=== PATIENT | female | born 1980 | race Caucasian/White ===

== ENCOUNTER 2020-03-13 07:15 | Outpatient (REF) | payer OTHER, SELFPAY ==
[2020-03-13 09:36] LABS: Alanine Aminotransferase 20 U/L (0-31); Albumin Level 4.1 g/dL (3.5-5.0); Alkaline Phosphatase 88 U/L (39-117); Anion Gap 10 (12-20); Aspartate Amino Transferase 23 U/L (5-31); Bilirubin Total 0.4 mg/dL (0.0-1.0); Blood Urea Nitrogen 10 mg/dL (9-16); Calcium 8.9 mg/dL (8.4-10.2); Carbon Dioxide 27 mmol/L (22-29); Chloride 103 mmol/L (96-108); Cholesterol 213 mg/dL; Estimated Glomerular Filt Rate > 60; Glucose Fasting 77 mg/dL (60-99); HDL Cholesterol 68 mg/dL; LDL Cholesterol Calculated 121 mg/dl; Potassium 4.4 mmol/l (3.3-5.1); Sodium 136 mmol/L (135-145); Total Protein 7.1 g/dL (6.5-8.0); Triglycerides 123 mg/dL
[2020-03-13 09:47] LABS: TSH reflex Free T4 1.66 mIU/mL (0.32-4.0)
== END 2020-03-13 07:16 | disposition home or self-care (01) ==
LOC: HO.LAB 07:15
PROVIDERS: Visit Provider Internal Medicine
DX: E78.00 Pure hypercholesterolemia, unspecified (principal); E06.3 Autoimmune thyroiditis
CPT/HCPCS: 80053; 80061; 84443

== ENCOUNTER 2020-07-12 07:50 | Outpatient (REF) | payer OTHER, SELFPAY ==
[2020-07-12 09:19] LABS: TSH reflex Free T4 2.65 uIU/mL (0.32-4.0)
== END 2020-07-12 07:51 | disposition home or self-care (01) ==
LOC: HO.LAB 07:50
PROVIDERS: PCP Internal Medicine; Visit Provider Internal Medicine
DX: E03.9 Hypothyroidism, unspecified (principal)
CPT/HCPCS: 36415; 84443

== ENCOUNTER 2020-08-18 08:30 | Outpatient (REF) | payer OTHER, SELFPAY | END 2020-08-18 08:31 | disposition home or self-care (01) | LOC: HO.WFDLDS 08:30 | PROVIDERS: Visit Provider Internal Medicine | DX: Z20.822 Contact with and (suspected) exposure to COVID-19 (principal) | CPT/HCPCS: U0003; U0005 ==

== ENCOUNTER 2021-02-07 16:20 | Outpatient (REF) | payer OTHER, SELFPAY ==
[2021-02-07 18:31] LABS: TSH reflex Free T4 3.21 uIU/mL (0.32-4.0)
== END 2021-02-07 16:21 | disposition home or self-care (01) ==
LOC: HO.LAB 16:20
PROVIDERS: PCP Internal Medicine; Visit Provider Internal Medicine
DX: E03.9 Hypothyroidism, unspecified (principal)
CPT/HCPCS: 36415; 84443

== ENCOUNTER 2021-11-14 08:30 | Outpatient (REF) | payer OTHER, SELFPAY ==
[2021-11-14 09:08] LABS: Hematocrit 39.2 % (37.0-47.0); Hemoglobin 12.2 g/dl (12.0-16.0); Mean Corpuscular HGB Conc 31.1 g/dl (31.0-35.0); Mean Corpuscular Hemoglobin 26.2 pg (27.0-33.0); Mean Corpuscular Volume 84.3 fL (80.0-98.0); Mean Platelet Volume 9.5 fL (9.4-12.3); Platelet Count 419 X10*3/uL (160-400); Red Blood Count 4.65 X10*6/uL (4.20-5.50); Red Cell Distribution Width 15.4 % (11.0-16.0); White Blood Count 8.6 X10*3/uL (4.8-10.8)
[2021-11-14 09:30] LABS: Alanine Aminotransferase 13 U/L (0-31); Albumin Level 4.3 g/dL (3.5-5.0); Alkaline Phosphatase 101 U/L (39-117); Anion Gap 10 (12-20); Aspartate Amino Transferase 18 U/L (5-31); Bilirubin Total 0.3 mg/dL (0.0-1.0); Blood Urea Nitrogen 10 mg/dL (9-16); Calcium 9.6 mg/dL (8.4-10.2); Carbon Dioxide 26 mmol/L (22-29); Chloride 107 mmol/L (96-108); Cholesterol 221 mg/dL; Estimated Glomerular Filt Rate > 60; Glucose Fasting 91 mg/dL (60-99); HDL Cholesterol 64 mg/dL; LDL Cholesterol Calculated 144 mg/dl; Potassium 5.2 mmol/L (3.3-5.1); Sodium 138 mmol/L (135-145); Total Protein 7.4 g/dL (6.5-8.0); Triglycerides 65 mg/dL
[2021-11-14 09:52] LABS: TSH reflex Free T4 4.06 uIU/mL (0.32-4.0)
[2021-11-14 10:46] LABS: Free T4 (Free Thyroxine) 1.22 ng/dL (0.71-1.85)
== END 2021-11-14 08:31 | disposition home or self-care (01) ==
LOC: HO.LAB 08:30
PROVIDERS: PCP Internal Medicine; Visit Provider Physician Assistant
DX: E03.9 Hypothyroidism, unspecified (principal); I10 Essential (primary) hypertension; E78.00 Pure hypercholesterolemia, unspecified
CPT/HCPCS: 36415; 80053; 80061; 84439; 84443; 85027

== ENCOUNTER 2021-12-04 08:30 | Outpatient (REF) | payer OTHER, SELFPAY ==
--- NOTE | ~2021-12-04 | MM_ITS ---
EXAMINATION: MM SCREENING DIGITAL BREAST TOMOSYNTHESIS, BILATERAL CLINICAL INFORMATION: Screening. Asymptomatic. Age 41. No prior breast imaging. No known family history breast cancer. The lifetime risk of breast cancer based on the Tyrer-Cuzick Model is 11%. COMPARISON: None (current study represents initial baseline exam). TECHNIQUE: Digital breast tomosynthesis is performed in both the craniocaudal and mediolateral oblique views along with computer-aided detection (CAD). Synthesized 2D images are generated from the tomosynthesis. FINDINGS: There are scattered areas of fibroglandular density (ACR BI-RADS breast composition Category b). There are no significant masses, abnormal calcifications, or other abnormalities. No architectural abnormality. There is an intramammary node posterior upper outer right breast. The bilateral axilla and skin contours are unremarkable MM/MM tomosynthesis screening BI IMPRESSION: No mammographic evidence of malignancy. ASSESSMENT: BI-RADS 2: Benign RECOMMENDATION: Routine annual mammography screening. This patient's information was entered into a reminder system with a target due date for their next mammogram.
== END 2021-12-04 08:31 | disposition home or self-care (01) ==
LOC: HO.MAMMO 08:30
PROVIDERS: PCP Internal Medicine; Visit Provider Internal Medicine
DX: Z12.31 Encounter for screening mammogram for malignant neoplasm of breast (principal)
CPT/HCPCS: 77063; 77067

== ENCOUNTER 2022-02-07 16:37 | Outpatient (REF) | payer OTHER, SELFPAY ==
[2022-02-07 17:47] LABS: Alanine Aminotransferase 11 U/L (0-31); Albumin Level 4.3 g/dL (3.5-5.0); Alkaline Phosphatase 89 U/L (39-117); Anion Gap 13 (12-20); Aspartate Amino Transferase 17 U/L (5-31); Bilirubin Total 0.6 mg/dL (0.0-1.0); Blood Urea Nitrogen 11 mg/dL (9-16); Calcium 9.3 mg/dL (8.4-10.2); Carbon Dioxide 24 mmol/L (22-29); Chloride 105 mmol/L (96-108); Estimated Glomerular Filt Rate > 60; Glucose Random 80 mg/dL (60-115); Potassium 4.3 mmol/L (3.3-5.1); Sodium 138 mmol/L (135-145); Total Protein 7.3 g/dL (6.5-8.0)
== END 2022-02-07 16:38 | disposition home or self-care (01) ==
LOC: HO.LAB 16:37
PROVIDERS: PCP Internal Medicine; Visit Provider Internal Medicine
DX: E87.5 Hyperkalemia (principal)
CPT/HCPCS: 36415; 80053

== ENCOUNTER → 2022-02-13 07:48 | Outpatient (REF) | payer OTHER, SELFPAY ==
--- NOTE | 2022-02-13 07:54 | ECG_ITS ---
Test Reason : hyperkalemia Blood Pressure : / mmHG Vent. Rate : 063 BPM Atrial Rate : 063 BPM P-R Int : 148 ms QRS Dur : 080 ms QT Int : 392 ms P-R-T Axes : 013 077 042 degrees QTc Int : 401 ms Normal sinus rhythm RSR' or QR pattern in V1 suggests right ventricular conduction delay Otherwise normal ECG No previous ECGs available Referred By: Jaqueline Santiago Electronically Signed By:FANY STILES MD
== END ==
LOC: HO.CARD 07:48
PROVIDERS: PCP Internal Medicine; Visit Provider Internal Medicine
DX: E87.5 Hyperkalemia (principal)
CPT/HCPCS: 93005

== ENCOUNTER 2022-03-19 09:23 | Outpatient (REF) | payer OTHER, SELFPAY ==
[2022-03-22 23:47] LABS: HPV mRNA E6/E7 rflx Not Detected (Not Detected)
== END 2022-03-19 09:24 | disposition home or self-care (01) ==
LOC: HO.LNP 09:23
PROVIDERS: Visit Provider Obstetrics & Gynecology
DX: Z01.419 Encounter for gynecological examination (general) (routine) without abnormal findings (principal)
CPT/HCPCS: 87624; 88142

== ENCOUNTER → 2022-05-14 14:31 | Outpatient (BNVA) | payer OTHER, SELFPAY | PROVIDERS: PCP Internal Medicine; Referring Provider Internal Medicine; Visit Provider Internal Medicine | DX: Z13.89 Encounter for screening for other disorder (principal) ==

== ENCOUNTER 2022-05-15 08:30 | Outpatient (REF) | payer OTHER, SELFPAY ==
[2022-05-15 09:51] LABS: Thyroid Stimulating Hormone 2.02 uIU/mL (0.32-4.0)
== END 2022-05-15 08:31 | disposition home or self-care (01) ==
LOC: HO.LAB 08:30
PROVIDERS: PCP Internal Medicine; Visit Provider Internal Medicine
DX: E03.9 Hypothyroidism, unspecified (principal)
CPT/HCPCS: 36415; 84443

== ENCOUNTER 2022-12-11 08:30 | Outpatient (AMB) | payer OTHER, SELFPAY ==
[2022-12-11 08:40] VITALS: BP 104/70; PULSE 80; BMI 28.7
--- NOTE | 2022-12-11 08:40 | MHC.PC.OV ---
Vital Signs 12/11/22 08:40 Height 5 ft 3 in Weight 162 lb BMI 28.7 BP 104/70 Blood Pressure Location Lt brachial Position Sitting Pulse 80 Pulse Source Palpation Intake Visit Reasons: PE Intake Note: Patient is here today for a physical. Fish Cleaner Required: No Accompanied by: Self / Same As Patient Allergies No Known Allergies [NKA] Allergy (Mild, Verified 12/11/22 08:54) NOT APPLICABLE Medication List - Last Reconciled 12/11/22 by Jaqueline Santiago MD albuterol sulfate 90 mcg/actuation 1 inh inhalation QID 30 days albuterol sulfate 90 mcg/actuation (Ventolin HFA) 2 puffs inhalation Q6H PRN 30 days fexofenadine (Matrha Allergy) 180 mg PO DAILY fluticasone propionate 44 mcg/actuation (Flovent HFA) 1 puff PO BID levothyroxine 100 mcg PO DAILY 90 days Tobacco use date assessed: 05/15/22 Dental Screening Dental Screen Date: 12/11/22 Did you have a dental visit in the last 12 months?: No Did you have a dental problem in the last 6 months where you did not have access to dental care?: No Was dental information given to patient?: Patient has dentist HPI HPI Comments History of Present Illness Details This is a 40-year-old female that comes for her physical exam. Last mammogram was December 2021 and will call for another appointment this year. Last Pap smear was March 2022 with HPV negative. No chest pain or shortness of breath. No fever cough. No change in bowel or bladder habits. [facility] Medical History Hypothyroidism Moderate asthma with allergic rhinitis Pure hypercholesterolemia Surgical History History of section History of nasal surgery Family History Father Medical history unknown Mother Hypothyroid Multiple sclerosis Maternal Grandmother Myocardial infarction Hypertension Maternal Aunt Diabetes Maternal Uncle Diabetes Social History Housing: House Alcohol intake: never Patient Tobacco Use Status: Never used Tobacco e-Cigarette/Vaping Use: Never Used Second Hand Smoke Exposure: No service: No Current occupational status: employed Current occupational exposures/hazards: No Cognitive needs: No Hearing needs: No Vision needs: No Female Reproductive History Menstrual Age of Menarche: 11 Questionnaire PHQ-9 Over the last 2 weeks, how often have you been bothered by any of the following problems? 1. Little interest or pleasure in doing things: not at all 2. Feeling down, depressed, or hopeless: not at all 3. Trouble falling or staying asleep, or sleeping too much: not at all 4. Feeling tired or having little energy: not at all 5. Poor appetite or overeating: not at all 6. Feeling bad about yourself - or that you are a failure or have let yourself or your family down: not at all 7. Trouble concentrating on things, such as reading the newspaper or watching television: not at all 8. Moving or speaking so slowly that other people could have noticed. Or the opposite - being so fidgety or restless that you have been moving around a lot more than usual: not at all 9. Thoughts that you would be better off or of hurting yourself in some way: not at all Total score: 0 Depression Screening Interpretation: Negative 96469 - PHQ-9 Billing: Yes Source: Developed by Drs. Babar Wilks, Jovanna Prajapati, Rafa Chu and colleagues, with an educational kwadwo from [employer]. Thrive Questionnaire Date Thrive assessed: 05/15/22 I am a: Patient What is your living situation today?: I have a steady place to live Within the past 12 months, did the food you bought not last and you didn't have the money to get more?: Never true Within the past 12 months, did you worry whether your food would run out before you got money to buy more?: Never true Currently or been in a relationship where the following occur: no concerns reported AUDIT C Alcohol Use Questionnaire (AUDIT-C) 1. How often do you have a drink containing alcohol?: Never Total Score: 0 Score Reviewed/Action Taken: No KE-7 AMB Questionnaire KE-7 Date KE - 7 assessed: 05/15/22 Feeling nervous, anxious, or on edge: 0 = Not at all Not being able to stop or control worryin = Not at all Worrying too much about different things: 0 = Not at all Trouble relaxin = Not at all Being so restless that it is hard to sit still: 0 = Not at all Becoming easily annoyed or irritable: 0 = Not at all Feeling afraid as if something awful might happen: 0 = Not at all Total KE-7 score (0-4 normal; 5-9 mild; 10-14 moderate; 15-21 severe): 0 Source: Developed by Drs. Babar Wilks, Jovanna Prajapati, Rafa Chu and colleagues, with an educational kwadwo from [employer]. KE-7 Assessment Billing KE-7 Assessment Tool: KE-7 Assessment 79671 Review of Systems Const All systems reviewed & are unremarkable except as noted in HPI and below Eyes Reports no additional complaints, Denies change in vision and Denies other visual disturbances Card Denies chest pain at rest, Denies chest pain with activity, Denies edema, Denies irregular heart rhythm, Denies claudication, Denies dyspnea, Denies dyspnea on exertion, Denies orthopnea, Denies paroxysmal nocturnal dyspnea and Denies slow heart rate Resp Denies cough, Denies dyspnea and Denies dyspnea on exertion GI Denies abdominal pain, Denies change in bowel habits, Denies excessive flatus, Denies nausea and Denies vomiting Denies urinary incontinence, Denies urinary hesitancy and Denies urinary urgency Musc Denies abnormal gait, Denies atrophy, Denies deformity and Denies limited range of motion Skin/Breast Denies bleeding lesions, Denies changing lesions and Denies rash Neuro Denies abnormal gait and Denies lack of coordination Physical exam (Primary Care) Vital Signs: Last Vital Signs Pulse 80 12/11/22 08:40 BP 104/70 12/11/22 08:40 BMI result Body Mass Index 28.7 Tobacco/Smoking Status: Tobacco use Status Tobacco use date assessed 05/15/22 12/11/22 08:43 Patient Tobacco Use Status Never used Tobacco 12/11/22 08:43 Tobacco use type 11/27/21 13:25 e-Cigarette/Vaping Use Never Used 12/11/22 08:43 PHQ-9: PHQ-9 Score PHQ-9: Total score 0 12/11/22 08:45 Depression Screening Interpretation: Negative Thrive Assessment: Date of Thrive Assessment Date Thrive assessed 05/15/22 12/11/22 08:43 Currently or been in a relationship where the following occur: no concerns reported Const Orientation/consciousness: patient oriented x3 HENMT Head: Yes normal to inspection, Yes normocephalic and Yes atraumatic Ears: external ears normal Eyes General: appearance normal, both eyes and all related structures Eyelids: Yes eyelids normal Conjunctivae: conjunctivae normal Neck Neck: Yes normal visual inspection and Yes supple Resp Effort & Inspection: normal respiratory effort Auscultation: clear to auscultation bilaterally Cardio Jugular venous distension: no JVD Rate: regular rate Rhythm: regular rhythm Heart sounds: S1 normal heart sound present and S2 normal heart sound present GI Inspection: Yes normal to inspection Palpation (GI): Soft to palpation and nontender Auscultation: normal bowel sounds Skin General skin exam: no rashes or lesions noted Neuro General: patient oriented x3 and no focal motor deficits Extrem General: Yes full ROM Psych Appearance: grossly normal Assessment and Plan Assessment & Plan (1) Physical exam: Code(s): Z00.00 - Encounter for general adult medical examination without abnormal findings Plan: Repeat in a year Orders: Orders Comprehensive [place]. Panel Fast Today Z00.00 - Encounter for general adult medical examination without abnormal findings Lipid Panel Today E78.5 - Hyperlipidemia, unspecified, Z00.00 - Encounter for general adult medical examination without abnormal findings Thyroid Stimulating Hormone Today E03.9 - Hypothyroidism, unspecified Coding Level of Care Code Est Pt Prev Care 40-64y(75618) Diagnoses Physical exam Z00.00 Additional Codes KE-7 Assessment Billing - KE-7 Assessment Tool: KE-7 Assessment 56711 ([id number]) Time Spent (min) 30
== END 2022-12-11 09:02 | disposition home or self-care (01) ==
PROVIDERS: PCP Internal Medicine; Visit Provider Internal Medicine
DX: Z00.00 Encounter for general adult medical examination without abnormal findings (principal)
CPT/HCPCS: 99396

== ENCOUNTER 2022-12-11 09:07 | Outpatient (REF) | payer OTHER, SELFPAY ==
[2022-12-11 10:58] LABS: Alanine Aminotransferase 15 U/L (0-31); Albumin Level 4.3 g/dL (3.5-5.0); Alkaline Phosphatase 96 U/L (39-117); Anion Gap 12 (12-20); Aspartate Amino Transferase 20 U/L (5-31); Bilirubin Total 0.8 mg/dL (0.0-1.0); Blood Urea Nitrogen 12 mg/dL (9-16); Calcium 9.7 mg/dL (8.4-10.2); Carbon Dioxide 26 mmol/L (22-29); Chloride 106 mmol/L (96-108); Cholesterol 237 mg/dL; Estimated Glomerular Filt Rate > 60; Glucose Fasting 88 mg/dL (60-99); HDL Cholesterol 73 mg/dL; LDL Cholesterol Calculated 147 mg/dl; Potassium 4.1 mmol/L (3.3-5.1); Sodium 140 mmol/L (135-145); Total Protein 7.8 g/dL (6.5-8.0); Triglycerides 85 mg/dL
== END 2022-12-11 09:08 | disposition home or self-care (01) ==
LOC: HO.LAB 09:07
PROVIDERS: PCP Internal Medicine; Visit Provider Internal Medicine
DX: Z00.00 Encounter for general adult medical examination without abnormal findings (principal); E78.5 Hyperlipidemia, unspecified; E03.9 Hypothyroidism, unspecified
CPT/HCPCS: 36415; 80053; 80061; 84443

== ENCOUNTER 2023-03-20 08:10 | Outpatient (AMB) | payer OTHER, SELFPAY ==
--- NOTE | 2023-03-20 08:35 | A.OFFVIS_ITS ---
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 No complaints. Last Pap/HPV was negative in 03/26 Last Mammogram was BI-RADS 2 in 12/24 [facility] Medical History Moderate asthma with allergic rhinitis Pure hypercholesterolemia Hypothyroidism Surgical History History of nasal surgery History of section Family History Father Medical history unknown Mother Hypothyroid Multiple sclerosis Maternal Grandmother Myocardial infarction Hypertension Maternal Aunt Diabetes Maternal Uncle Diabetes Social History Household Members: Spouse and Children Housing: House Alcohol intake: never Patient Tobacco Use Status: Never used Tobacco e-Cigarette/Vaping Use: Never Used Second Hand Smoke Exposure: No service: No Current occupational status: employed 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 Current occupational exposures/hazards: No Sexually active: Yes Sexual orientation: Straight/Heterosexual Gender identity: Female Cognitive needs: No Hearing needs: No Vision needs: No Female Reproductive History Menstrual Age of Menarche: 11 Date of last menstrual period: 02/28/23 Total pregnancies: 2 Full term: 2 Number of Living Children: 2 Date of last pap smear: 03/21/22 Date of Mammogram: 12/04/21 Review of Systems Const All systems reviewed & are unremarkable except as noted in HPI and below Card Reports as per HPI Resp Reports as per HPI GI Reports as per HPI and Reports no additional complaints Reports as per HPI Physical Exam Vital Signs: Last Vital Signs BP 110/76 03/20/23 08:40 BMI result Body Mass Index 27.5 Const General: cooperative, healthy appearing and comfortable Chest Chest palpation & inspection: normal inspection of the chest and normal palpation of entire chest wall Breast/axilla inspection: normal inspection of the breasts and normal inspection of the axillae Breast/axilla palpation: normal palpation of the breasts, normal palpation of the axillae and no axillary lymphadenopathy Resp Effort & Inspection: normal respiratory effort Auscultation: clear to auscultation bilaterally Percussion: percussion normal Cardio Palpation: normal PMI Rate: regular rate Rhythm: regular rhythm Heart sounds: no murmurs and no rubs Peripheral pulses: Peripheral pulses 2+ throughout GI Inspection: Yes normal to inspection Palpation (GI): Soft to palpation, nontender, no guarding, not rigid and No hepatosplenomegaly present Percussion: Yes normal to percussion Auscultation: normal bowel sounds Rectal Exam - Female: deferred General: Yes bladder normal to palpation External Female Exam: No lesion Speculum Exam - Vagina: normal appearance of the vagina, normal palpation, normal vaginal discharge and not erythematous Speculum Exam - Cervix: normal appearance of the cervix and normal palpation Bimanual exam- vagina & uterus: normal bimanual exam, normal palpation, uterine size normal, bladder normal to palpation, consistency normal and normal palpation Bimanual Exam- Adnexa, other: normal adnexae, no masses and no tenderness Assessment & Plan Assessment & Plan (1) Well woman exam: Code(s): Z01.419 - Encounter for gynecological examination (general) (routine) without abnormal findings Plan: Cotesting not indicated this year. Mammogram ordered. Counseled the patient about the recommended dietary allowance of 1000 mg of Calcium & 600 IU of vitamin D. The patient was instructed to perform monthly self-breast exams and to schedule an annual exam in a year; All questions answered and the patient verbalized understanding. Instructed the patient to schedule annual exam in a year Orders: Orders MM screening mammo BI Today Z12.31 - Encounter for screening mammogram for malig nant neoplasm of breast Coding Level of Care Code Est Pt Prev Care 40-64y(71048) Diagnoses Well woman exam Z01.419
[2023-03-20 08:40] VITALS: BP 110/76; BMI 27.5
== END 2023-03-20 08:56 | disposition home or self-care (01) ==
PROVIDERS: Visit Provider Obstetrics & Gynecology
DX: Z01.419 Encounter for gynecological examination (general) (routine) without abnormal findings (principal)
CPT/HCPCS: 99396

== ENCOUNTER → 2023-03-20 08:10 | Outpatient (BNVA) | payer OTHER, SELFPAY | PROVIDERS: Visit Provider Obstetrics & Gynecology ==

== ENCOUNTER 2023-06-03 11:33 | Outpatient (REF) | payer OTHER, SELFPAY | END 2023-06-03 11:34 | disposition home or self-care (01) | LOC: HO.MAMMO 11:33 | PROVIDERS: PCP Internal Medicine; Visit Provider Obstetrics & Gynecology | DX: Z12.31 Encounter for screening mammogram for malignant neoplasm of breast (principal) | CPT/HCPCS: 77063; 77067 ==

== ENCOUNTER → 2023-06-03 11:45 | Outpatient (BNV) | payer OTHER, SELFPAY | PROVIDERS: PCP Internal Medicine; Visit Provider Radiology Diagnostic Radiology | DX: Z12.31 Encounter for screening mammogram for malignant neoplasm of breast (principal) | CPT/HCPCS: 77063; 77067 ==

== ENCOUNTER 2023-06-19 07:46 | Outpatient (AMB) | payer OTHER, SELFPAY ==
[2023-06-19 07:56] VITALS: BP 110/72; BMI 29.6
--- NOTE | 2023-06-19 07:56 | A.OFFPC_ITS ---
Vital Signs 06/19/23 07:56 Height 5 ft 3 in Weight 167 lb BMI 29.6 BP 110/72 Blood Pressure Location Lt brachial Position Sitting Intake Visit Reasons: 6mon f/u Intake Note: Patient here for 6 month follow up Fiberglass Boat Maker Required: No Accompanied by: Self / Same As Patient Allergies No Known Allergies [NKA] Allergy (Mild, Verified 06/19/23 08:14) NOT APPLICABLE Medication List - Last Reconciled 06/19/23 by Jaqueline Santiago MD albuterol sulfate 90 mcg/actuation (Ventolin HFA) 2 puffs inhalation Q6H PRN 30 days fexofenadine (Martha Allergy) 180 mg PO DAILY fluticasone furoate 50 mcg/actuation (Arnuity Ellipta) 1 inh inhalation DAILY 30 days levalbuterol tartrate 45 mcg/actuation (Xopenex HFA) 2 puffs inhalation Q4-6H PRN 30 days levothyroxine 100 mcg PO DAILY 90 days Tobacco use date assessed: 06/19/23 Dental Screening Dental Screen Date: 06/19/23 Did you have a dental visit in the last 12 months?: Yes Did you have a dental problem in the last 6 months where you did not have access to dental care?: No Was dental information given to patient?: Patient has dentist HPI HPI Comments History of Present Illness Details This is a 43-year-old female with hypothyroidism and moderate persistent asthma with allergic rhinitis that comes today for follow-up on her conditions. TSH will be ordered today. She use rescue inhaler less than once a month. No chest pain or shortness of breath. Doing well. [facility] Medical History Moderate asthma with allergic rhinitis Pure hypercholesterolemia Hypothyroidism Surgical History History of nasal surgery History of section Family History Father Medical history unknown Mother Hypothyroid Multiple sclerosis Maternal Grandmother Myocardial infarction Hypertension Maternal Aunt Diabetes Maternal Uncle Diabetes Social History Household Members: Spouse and Children Housing: House Alcohol intake: never Patient Tobacco Use Status: Never used Tobacco e-Cigarette/Vaping Use: Never Used Second Hand Smoke Exposure: No service: No 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 1. Little interest or pleasure in doing things: not at all 2. Feeling down, depressed, or hopeless: not at all 3. Trouble falling or staying asleep, or sleeping too much: not at all 4. Feeling tired or having little energy: not at all 5. Poor appetite or overeating: not at all 6. Feeling bad about yourself - or that you are a failure or have let yourself or your family down: not at all 7. Trouble concentrating on things, such as reading the newspaper or watching television: not at all 8. Moving or speaking so slowly that other people could have noticed. Or the opposite - being so fidgety or restless that you have been moving around a lot more than usual: not at all 9. Thoughts that you would be better off or of hurting yourself in some way: not at all Total score: 0 Depression Screening Interpretation: Negative Depression Screening Done: Yes 95022 - PHQ-9 Billing: Yes Source: Developed by Drs. Babar Wilks, Jovanna Prajapati, Rafa Chu and colleagues, with an educational kwadwo from [employer]. Thrive Questionnaire Date Thrive assessed: 06/19/23 I am a: Patient What is your living situation today?: I have a steady place to live Within the past 12 months, did the food you bought not last and you didn't have the money to get more?: Never true Within the past 12 months, did you worry whether your food would run out before you got money to buy more?: Never true Do you have trouble paying for medicines?: No Do you have trouble getting transportation to medical appointments?: No Do you have trouble paying your heating and electricity bill?: No Do you have trouble taking care of your child, family member or friend?: No Do you have trouble with day-to-day activities such as bathing, preparing meals, shopping, managing finances, etc.?: No Are you currently unemployed and looking for a job?: No Are you interested in more education?: No Please select the resources that you would like help with: None Currently or been in a relationship where the following occur: no concerns reported THRIVE Score: 0 AUDIT C Alcohol Use Questionnaire (AUDIT-C) 1. How often do you have a drink containing alcohol?: Never Total Score: 0 KE-7 AMB Questionnaire KE-7 Date KE - 7 assessed: 06/19/23 Feeling nervous, anxious, or on edge: 0 = Not at all Not being able to stop or control worryin = Not at all Worrying too much about different things: 0 = Not at all Trouble relaxin = Not at all Being so restless that it is hard to sit still: 0 = Not at all Becoming easily annoyed or irritable: 0 = Not at all Feeling afraid as if something awful might happen: 0 = Not at all Total KE-7 score (0-4 normal; 5-9 mild; 10-14 moderate; 15-21 severe): 0 Source: Developed by Drs. Babar Wilks, Jovanna Prajapati, Rafa Chu and colleagues, with an educational kwadwo from [employer]. KE-7 Assessment Billing KE-7 Assessment Tool: KE-7 Assessment 67471 Review of Systems Const All systems reviewed & are unremarkable except as noted in HPI and below Eyes Reports no additional complaints, Denies change in vision and Denies other vis ual disturbances Card Denies chest pain at rest, Denies chest pain with activity, Denies edema, Denies irregular heart rhythm, Denies claudication, Denies dyspnea, Denies dyspnea on exertion, Denies orthopnea, Denies paroxysmal nocturnal dyspnea and Denies slow heart rate Resp Denies cough, Denies dyspnea and Denies dyspnea on exertion GI Denies abdominal pain, Denies change in bowel habits, Denies excessive flatus, Denies nausea and Denies vomiting Denies urinary incontinence, Denies urinary hesitancy and Denies urinary urgency Musc Denies abnormal gait, Denies atrophy, Denies deformity and Denies limited range of motion Skin/Breast Denies bleeding lesions, Denies changing lesions and Denies rash Neuro Denies abnormal gait, Denies behavioral changes and Denies lack of coordination Psych Denies behavioral changes Physical exam (Primary Care) Vital Signs: Last Vital Signs BP 110/72 06/19/23 07:56 BMI result Body Mass Index 29.6 Tobacco/Smoking Status: Tobacco use Status Tobacco use date assessed 06/19/23 06/19/23 08:00 Patient Tobacco Use Status Never used Tobacco 06/19/23 08:00 Tobacco use type 03/20/23 08:57 e-Cigarette/Vaping Use Never Used 06/19/23 08:00 PHQ-9: PHQ-9 Score PHQ-9: Total score 0 06/19/23 08:18 Depression Screening Interpretation: Negative Thrive Assessment: Date of Thrive Assessment Date Thrive assessed 06/19/23 06/19/23 08:00 Currently or been in a relationship where the following occur: no concerns reported Eyes General: appearance normal, both eyes and all related structures Eyelids: Yes eyelids normal Conjunctivae: conjunctivae normal Neck Neck: Yes normal visual inspection and Yes supple Resp Effort & Inspection: normal respiratory effort Auscultation: clear to auscultation bilaterally Cardio Jugular venous distension: no JVD Rate: regular rate Rhythm: regular rhythm Heart sounds: S1 normal heart sound present and S2 normal heart sound present Extrem General: Yes full ROM Assessment and Plan Assessment & Plan (1) Moderate asthma with allergic rhinitis: Code(s): J45.40 - Moderate persistent asthma, uncomplicated Qualifiers: Asthma persistence: persistent Asthma complication type: uncomplicated Qualified Code(s): J45.40 - Moderate persistent asthma, uncomplicated Plan: Use rescue inhaler as needed. Continue long-acting inhaler. (2) Hypothyroidism: Code(s): E03.9 - Hypothyroidism, unspecified Qualifiers: Hypothyroidism type: unspecified Qualified Code(s): E03.9 - Hypothyroidism, unspecified Plan: Continue levothyroxine. Monitor TSH. Orders: Orders Thyroid Stimulating Hormone Today E03.9 - Hypothyroidism, unspecified Coding Level of Care Code Est Pt Level 3 (32830) Diagnoses Moderate persistent asthma with allergic rhinitis without complication J45.40 Asthma persistence: persistent Asthma complication type: uncomplicated Hypothyroidism, unspecified type E03.9 Hypothyroidism type: unspecified Additional Codes KE-7 Assessment Billing - KE-7 Assessment Tool: KE-7 Assessment 67120 ([id number]) Time Spent (min) 19
== END 2023-06-19 08:21 | disposition home or self-care (01) ==
PROVIDERS: PCP Internal Medicine; Visit Provider Internal Medicine
DX: J45.40 Moderate persistent asthma, uncomplicated (principal); E03.9 Hypothyroidism, unspecified
CPT/HCPCS: 99213

== ENCOUNTER 2023-06-19 08:24 | Outpatient (REF) | payer OTHER, SELFPAY ==
[2023-06-19 09:54] LABS: Thyroid Stimulating Hormone 4.14 uIU/mL (0.32-4.0)
== END 2023-06-19 08:25 | disposition home or self-care (01) ==
LOC: HO.LAB 08:24
PROVIDERS: Visit Provider Internal Medicine
DX: E03.9 Hypothyroidism, unspecified (principal)
CPT/HCPCS: 36415; 84443

== ENCOUNTER 2023-08-05 15:41 | Outpatient (REF) | payer OTHER, SELFPAY ==
[2023-08-05 16:58] LABS: Thyroid Stimulating Hormone 0.92 uIU/mL (0.32-4.0)
== END 2023-08-05 15:42 | disposition home or self-care (01) ==
LOC: HO.LAB 15:41
PROVIDERS: PCP Internal Medicine; Visit Provider Internal Medicine
DX: E03.9 Hypothyroidism, unspecified (principal)
CPT/HCPCS: 36415; 84443

== ENCOUNTER 2023-12-15 07:34 | Outpatient (AMB) | payer OTHER, SELFPAY ==
[2023-12-15 07:40] VITALS: BP 110/80; BMI 31.2
--- NOTE | 2023-12-15 07:40 | MHC.PC.OV ---
Vital Signs 12/15/23 07:40 Height 5 ft 3 in Weight 176 lb BMI 31.2 BP 110/80 Blood Pressure Location Lt brachial Position Sitting Intake Visit Reasons: PE Intake Note: Patient here for a physical exam Systems Qa Analyst Required: No Accompanied by: Self / Same As Patient Allergies No Known Allergies [NKA] Allergy (Mild, Verified 12/15/23 08:15) NOT APPLICABLE Medication List - Last Reconciled 12/15/23 by Jaqueline Santiago MD albuterol sulfate 90 mcg/actuation (Ventolin HFA) 2 puffs inhalation Q6H PRN 30 days fexofenadine (Martha Allergy) 180 mg PO DAILY fluticasone furoate 50 mcg/actuation (Arnuity Ellipta) 1 inh inhalation DAILY 30 days levalbuterol tartrate 45 mcg/actuation (Xopenex HFA) 2 puffs inhalation Q4-6H PRN 30 days levothyroxine 112 mcg PO DAILY 90 days Tobacco use date assessed: 06/19/23 Dental Screening Dental Screen Date: 06/19/23 HPI HPI Comments History of Present Illness Details This is a 43-year-old female that comes for her physical exam. Pap smear done 2021 was normal. Mammogram done 2023 was normal. No chest pain or shortness on breath. No acute complaints. 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 Babar Wilks, Jovanna Prajapati, Rafa Chu and colleagues, with an educational kwadwo from [employer]. Review of Systems Const All systems reviewed & are unremarkable except as noted in HPI and below Card Denies chest pain at rest, Denies chest pain with activity, Denies edema, Denies irregular heart rhythm, Denies claudication, Denies dyspnea, Denies dyspnea on exertion, Denies orthopnea, Denies paroxysmal nocturnal dyspnea and Denies slow heart rate Resp Denies cough, Denies dyspnea and Denies dyspnea on exertion GI Denies abdominal pain, Denies change in bowel habits, Denies excessive flatus, Denies nausea and Denies vomiting Denies urinary incontinence, Denies urinary hesitancy and Denies urinary urgency Musc Denies abnormal gait, Denies atrophy, Denies deformity and Denies limited range of motion Neuro Denies abnormal gait, Denies behavioral changes and Denies lack of coordination Psych Denies behavioral changes Physical exam (Primary Care) Vital Signs: Last Vital Signs BP 110/80 12/15/23 07:40 BMI result Body Mass Index 31.2 Tobacco/Smoking Status: Tobacco use Status Tobacco use date assessed 06/19/23 12/15/23 07:45 Patient Tobacco Use Status Never used Tobacco 12/15/23 07:45 Tobacco use type 03/20/23 08:57 e-Cigarette/Vaping Use Never Used 12/15/23 07:45 Thrive Assessment: Date of Thrive Assessment Date Thrive assessed 06/19/23 12/15/23 07:45 [facility] Head: Yes normal to inspection, Yes normocephalic and Yes atraumatic Ears: external ears normal Eyes General: appearance normal, both eyes and all related structures Eyelids: Yes eyelids normal Conjunctivae: conjunctivae normal Neck Neck: Yes normal visual inspection and Yes supple Resp Effort & Inspection: normal respiratory effort Auscultation: clear to auscultation bilaterally Cardio Jugular venous distension: no JVD Rate: regular rate Rhythm: regular rhythm Heart sounds: S1 normal heart sound present and S2 normal heart sound present GI Inspection: Yes normal to inspection Palpation (GI): Soft to palpation and nontender Auscultation: normal bowel sounds Skin General skin exam: no rashes or lesions noted Neuro General: no focal motor deficits Extrem General: Yes full ROM Psych Appearance: grossly normal Assessment and Plan Assessment & Plan (1) Physical exam: Code(s): Z00.00 - Encounter for general adult medical examination without abnormal findings Plan: Repeat in a year. Orders: Orders Lipid Panel Today E78.5 - Hyperlipidemia, unspecified, Z00.00 - Encounter for general adult medical examination without abnormal findings Thyroid Stimulating Hormone Today E03.9 - Hypothyroidism, unspecified Comprehensive [place]. Panel Fast Today Z00.00 - Encounter for general adult medical examination without abnormal findings Coding Level of Care Code Est Pt Prev Care 40-64y(39810) Diagnoses Physical exam Z00.00 Time Spent (min) 30
== END 2023-12-15 08:23 | disposition home or self-care (01) ==
PROVIDERS: PCP Internal Medicine; Visit Provider Internal Medicine
DX: Z00.00 Encounter for general adult medical examination without abnormal findings (principal)
CPT/HCPCS: 99396

== ENCOUNTER 2023-12-15 08:29 | Outpatient (REF) | payer OTHER, SELFPAY ==
[2023-12-15 09:49] LABS: Alanine Aminotransferase 15 U/L (0-31); Albumin Level 4.4 g/dL (3.5-5.0); Alkaline Phosphatase 100 U/L (39-117); Anion Gap 16 (12-20); Aspartate Amino Transferase 32 U/L (5-31); Bilirubin Total 0.6 mg/dL (0.0-1.0); Blood Urea Nitrogen 13 mg/dL (9-16); Calcium 9.6 mg/dL (8.4-10.2); Carbon Dioxide 22 mmol/L (22-29); Chloride 106 mmol/L (96-108); Cholesterol 239 mg/dL (<200); Estimated Glomerular Filt Rate > 60; Glucose Fasting 90 mg/dL (60-99); HDL Cholesterol 76 mg/dL (>40); LDL Cholesterol Calculated 144 mg/dL (<100); Sodium 139 mmol/L (135-145); Total Protein 8.5 g/dL (6.5-8.0); Triglycerides 95 mg/dL (<150)
[2023-12-15 09:52] LABS: Thyroid Stimulating Hormone 0.98 uIU/mL (0.32-4.0)
== END 2023-12-15 08:30 | disposition home or self-care (01) ==
LOC: HO.LAB 08:29
PROVIDERS: PCP Internal Medicine; Visit Provider Internal Medicine
DX: Z00.00 Encounter for general adult medical examination without abnormal findings (principal); E03.9 Hypothyroidism, unspecified; E78.5 Hyperlipidemia, unspecified
CPT/HCPCS: 36415; 80053; 80061; 84443

== ENCOUNTER 2024-05-31 08:06 | Outpatient (AMB) | payer OTHER, SELFPAY ==
--- NOTE | 2024-05-31 08:10 | A.OFFVIS_ITS ---
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 No complaints. Last Pap/HPV was negative in 03/26 Last Mammogram was BI-RADS 1 in 05/28 No previous screening colonoscopy [facility] Medical History Moderate asthma with allergic rhinitis Pure hypercholesterolemia Hypothyroidism Surgical History History of nasal surgery History of section Family History Father Medical history unknown Mother Hypothyroid Multiple sclerosis Maternal Grandmother Myocardial infarction Hypertension Maternal Aunt Diabetes Maternal Uncle Diabetes Social History Household Members: Spouse and Children Housing: House Alcohol intake: never Patient Tobacco Use Status: Never used Tobacco e-Cigarette/Vaping Use: Never Used Second Hand Smoke Exposure: No service: No 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 occupational status: employed 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 Current occupational exposures/hazards: No Sexual orientation: Straight/Heterosexual Gender identity: Female Cognitive needs: No Hearing needs: No Vision needs: No Female Reproductive History Menstrual Age of Menarche: 11 Duration of menses: 3-5 days Date of last menstrual period: 05/25/24 Total pregnancies: 2 Full term: 2 Date of last pap smear: 03/19/22 (negative pap smear, negative hpv) Date of Mammogram: 06/03/23 (bi rad 1) Review of Systems Const All systems reviewed & are unremarkable except as noted in HPI and below Card Reports as per HPI Resp Reports as per HPI GI Reports as per HPI and Reports no additional complaints Reports as per HPI Physical Exam Const General: cooperative, healthy appearing and comfortable Chest Chest palpation & inspection: normal inspection of the chest and normal palpation of entire chest wall Breast/axilla inspection: normal inspection of the breasts and normal inspection of the axillae Breast/axilla palpation: normal palpation of the breasts, normal palpation of the axillae and no axillary lymphadenopathy Resp Effort & Inspection: normal respiratory effort Auscultation: clear to auscultation bilaterally Percussion: percussion normal Cardio Palpation: normal PMI Rate: regular rate Rhythm: regular rhythm Heart sounds: no murmurs and no rubs Peripheral pulses: Peripheral pulses 2+ throughout GI Inspection: Yes normal to inspection Palpation (GI): Soft to palpation, nontender, no guarding, not rigid and No hepatosplenomegaly present Percussion: Yes normal to percussion Auscultation: normal bowel sounds Rectal Exam - Female: deferred General: Yes bladder normal to palpation External Female Exam: No lesion Speculum Exam - Vagina: normal appearance of the vagina, normal palpation, normal vaginal discharge and not erythematous Speculum Exam - Cervix: normal appearance of the cervix and normal palpation Bimanual exam- vagina & uterus: normal bimanual exam, normal palpation, uterine size normal, bladder normal to palpation, consistency normal and normal palpation Bimanual Exam- Adnexa, other: normal adnexae, no masses and no tenderness Assessment & Plan Assessment & Plan (1) Well woman exam: Code(s): Z01.419 - Encounter for gynecological examination (general) (routine) without abnormal findings Category: Medical Plan: Cotesting not indicated this year. Mammogram ordered. GI referral placed for screening colonoscopy Counseled the patient about the recommended dietary allowance of 1000 mg of Calcium & 600 IU of vitamin D. The patient was instructed to perform monthly self-breast exams and to schedule an annual exam in a year; All questions answered and the patient verbalized understanding. Instructed the patient to schedule annual exam in a year Orders: Orders 2 MM tomosynthesis screening BI Today Z12.31 - Encounter for screening mammogram for malignant neoplasm of breast Referrals Gastroenterology Referral Z12.11 - Encounter for screening for malignant neoplasm of colon Coding Level of Care Code Est Pt Prev Care 40-64y(93973) Diagnoses Well woman exam Z01.419
[2024-05-31 08:11] VITALS: BP 124/72; BMI 31.4
== END 2024-05-31 08:44 | disposition home or self-care (01) ==
LOC: HO.HWS 08:06
PROVIDERS: PCP Internal Medicine; Visit Provider Obstetrics & Gynecology
DX: Z01.419 Encounter for gynecological examination (general) (routine) without abnormal findings (principal)
CPT/HCPCS: 99396; 99459

== ENCOUNTER → 2024-05-31 08:06 | Outpatient (BNVA) | payer OTHER, SELFPAY | PROVIDERS: PCP Internal Medicine; Visit Provider Obstetrics & Gynecology ==

== ENCOUNTER → 2024-06-08 08:00 | Outpatient (BNV) | payer OTHER, SELFPAY | PROVIDERS: PCP Internal Medicine; Referring Provider Obstetrics & Gynecology; Visit Provider Internal Medicine | DX: Z12.31 Encounter for screening mammogram for malignant neoplasm of breast (principal) | CPT/HCPCS: 77063; 77067 ==

== ENCOUNTER 2024-06-16 07:49 | Outpatient (REF) | payer OTHER, SELFPAY ==
[2024-06-16 10:19] LABS: Thyroid Stimulating Hormone 1.89 uIU/mL (0.32-4.0)
== END 2024-06-16 07:50 | disposition home or self-care (01) ==
LOC: HO.LAB 07:49
PROVIDERS: PCP Internal Medicine; Visit Provider Internal Medicine
DX: E03.9 Hypothyroidism, unspecified (principal); E78.00 Pure hypercholesterolemia, unspecified; J45.40 Moderate persistent asthma, uncomplicated; E66.811 Obesity, class 1; Z68.31 Body mass index [BMI] 31.0-31.9, adult; Z71.3 Dietary counseling and surveillance
CPT/HCPCS: 36415; 84443; 90471; 96127

== ENCOUNTER 2024-06-16 07:49 | Outpatient (AMB) | payer OTHER, SELFPAY ==
--- NOTE | 2024-06-16 07:58 | A.OFFPC_ITS ---
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 Required: No Accompanied by: Self / Same As Patient Allergies No Known Allergies [NKA] Allergy (Mild, Verified 06/16/24 08:11) NOT APPLICABLE Medication List - Last Reconciled 06/16/24 by Jaqueline Santiago MD albuterol sulfate 90 mcg/actuation (Ventolin HFA) 2 puffs inhalation Q6H PRN 30 days fexofenadine (Martha Allergy) 180 mg PO DAILY fluticasone furoate 50 mcg/actuation (Arnuity Ellipta) 1 inh inhalation DAILY 30 days levalbuterol tartrate 45 mcg/actuation (Xopenex HFA) 2 puffs inhalation Q4-6H PRN 30 days levothyroxine 112 mcg PO DAILY 90 days Tobacco use date assessed: 06/16/24 Dental Screening Dental Screen Date: 06/16/24 Did you have a dental visit in the last 12 months?: Yes Did you have a dental problem in the last 6 months where you did not have access to dental care?: No Was dental information given to patient?: Patient has dentist HPI HPI Comments History of Present Illness Details The patient is a 44-year-old female presenting with follow-up concerns regarding hypothyroidism, moderate asthma, and hyperlipidemia. She has a known history of hypothyroidism for which she takes levothyroxine 112 mcg daily. The condition has been stable, with regular follow-ups, and no significant symptoms of hypothyroid dysfunction were reported. Her moderate asthma is controlled with the use of an as-needed rescue inhaler. There have been no exacerbations, and she denies any chest pain or shortness of breath. The patient is also being monitored for hyperlipidemia, with elevated cholesterol levels noted previously. A repeat lipid panel is planned to assess current status. Her body mass index is 31, indicating class 1 obesity, though her weight has been stable with no recent change. Lifestyle modifications including a low carbohydrate diet are discussed as potential interventions. The patient reports adherence to her current medication regimen, including Martah for allergies, and denies any medication allergies. [facility] Medical History (Updated 06/16/24 @ 08:20 by Jaqueline Santiago MD) Moderate asthma with allergic rhinitis Pure hypercholesterolemia Hypothyroidism Surgical History History of nasal surgery History of section Family History Father Medical history unknown Mother Hypothyroid Multiple sclerosis Maternal Grandmother Myocardial infarction Hypertension Maternal Aunt Diabetes Maternal Uncle Diabetes Social History Household Members: Spouse and Children Housing: House Alcohol intake: never Patient Tobacco Use Status: Never used Tobacco e-Cigarette/Vaping Use: Never Used Second Hand Smoke Exposure: No service: No 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 1. Little interest or pleasure in doing things: not at all 2. Feeling down, depressed, or hopeless: not at all 3. Trouble falling or staying asleep, or sleeping too much: not at all 4. Feeling tired or having little energy: not at all 5. Poor appetite or overeating: not at all 6. Feeling bad about yourself - or that you are a failure or have let yourself or your family down: not at all 7. Trouble concentrating on things, such as reading the newspaper or watching television: not at all 8. Moving or speaking so slowly that other people could have noticed. Or the opposite - being so fidgety or restless that you have been moving around a lot more than usual: not at all 9. Thoughts that you would be better off or of hurting yourself in some way: not at all Total score: 0 Depression Screening Interpretation: Negative Depression Screening Done: Yes 15741 - PHQ-9 Billing: Yes Source: Developed by Drs. Babar Wilks, Jovanna Prajapati, Rafa Chu and colleagues, with an educational kwadwo from [employer]. Thrive Questionnaire Date Thrive assessed: 06/16/24 I am a: Patient What is your living situation today?: I have a steady place to live Within the past 12 months, did the food you bought not last and you didn't have the money to get more?: Never true Within the past 12 months, did you worry whether your food would run out before you got money to buy more?: Never true Do you have trouble paying for medicines?: No Do you have trouble getting transportation to medical appointments?: No Do you have trouble paying your heating and electricity bill?: No Do you have trouble taking care of your child, family member or friend?: No Do you have trouble with day-to-day activities such as bathing, preparing meals, shopping, managing finances, etc.?: No Are you currently unemployed and looking for a job?: No Are you interested in more education?: No Please select the resources that you would like help with: None Currently or been in a relationship where the following occur: No concerns reported THRIVE Score: 0 AUDIT C Alcohol Use Questionnaire (AUDIT-C) 1. How often do you have a drink containing alcohol?: Never Total Score: 0 Score Reviewed/Action Taken: No KE-7 AMB Questionnaire KE-7 Date KE - 7 assessed: 06/16/24 Feeling nervous, anxious, or on edge: 0 = Not at all Not being able to stop or control worryin = Not at all Worrying too much about different things: 0 = Not at all Trouble relaxin = Not at all Being so restless that it is hard to sit still: 0 = Not at all Becoming easily annoyed or irritable: 0 = Not at all Feeling afraid as if something awful might happen: 0 = Not at all Total KE-7 score (0-4 normal; 5-9 mild; 10-14 moderate; 15-21 severe): 0 Source: Developed by Drs. Babar Wilks, Jovanna Prajapati, Rafa Chu and colleagues, with an educational kwadwo from [employer]. KE-7 Assessment Billing KE-7 Assessment Tool: KE-7 Assessment 79256 Review of Systems Const All systems reviewed & are unremarkable except as noted in HPI and below Card Denies chest pain at rest, Denies chest pain with activity, Denies edema, Denies irregular heart rhythm, Denies claudication, Denies dyspnea, Denies dyspnea on exertion, Denies orthopnea, Denies paroxysmal nocturnal dyspnea and Denies slow heart rate Resp Denies cough, Denies dyspnea and Denies dyspnea on exertion Physical exam (Primary Care) Vital Signs: Last Vital Signs BP 110/80 06/16/24 08:03 BMI result Body Mass Index 31.2 Tobacco/Smoking Status: Tobacco use Status Tobacco use date assessed 06/16/24 06/16/24 08:06 Patient Tobacco Use Status Never used Tobacco 06/16/24 07:59 Tobacco use type 03/20/23 08:57 e-Cigarette/Vaping Use Never Used 06/16/24 07:59 PHQ-9: PHQ-9 Score PHQ-9: Total score 0 06/16/24 08:06 Depression Screening Interpretation: Negative Thrive Assessment: Date of Thrive Assessment Date Thrive assessed 06/16/24 06/16/24 08:06 Currently or been in a relationship where the following occur: No concerns reported Resp Effort & Inspection: normal respiratory effort Auscultation: clear to auscultation bilaterally Cardio Jugular venous distension: no JVD Rate: regular rate Rhythm: regular rhythm Heart sounds: S1 normal heart sound present and S2 normal heart sound present Extrem General: Yes full ROM Coding Level of Care Code Est Pt Level 4 (13294) Complex EM visit Add On G2211 Diagnoses Hypothyroidism, unspecified type E03.9 Hypothyroidism type: unspecified Pure hypercholesterolemia E78.00 Moderate persistent asthma with allergic rhinitis without complication J45.40 Asthma persistence: persistent Asthma complication type: uncomplicated Class 1 obesity with body mass index (BMI) of 31.0 to 31.9 in adult E66.811; Z68.31 Additional Codes PHQ-9 - 73179 - PHQ-9 Billing: Yes ([id number]) KE-7 Assessment Billing - KE-7 Assessment Tool: KE-7 Assessment 09292 ([id number]) Time Spent (min) 20 Assessment & Plan Assessment & Plan (1) Hypothyroidism: Code(s): E03.9 - Hypothyroidism, unspecified Category: Medical Qualifiers: Hypothyroidism type: unspecified Qualified Code(s): E03.9 - Hypothyroidism, unspecified (2) Pure hypercholesterolemia: Code(s): E78.00 - Pure hypercholesterolemia, unspecified Category: Medical (3) Moderate asthma with allergic rhinitis: Code(s): J45.40 - Moderate persistent asthma, uncomplicated Category: Medical Qualifiers: Asthma persistence: persistent Asthma complication type: uncomplicated Qualified Code(s): J45.40 - Moderate persistent asthma, uncomplicated (4) Class 1 obesity with body mass index (BMI) of 31.0 to 31.9 in adult: Code(s): E66.811 - Obesity, class 1; Z68.31 - Body mass index [BMI] 31.0-31.9, adult Category: Medical Plan - Repeat thyroid function tests today as the cholesterol panel needs fasting and has been scheduled for December. - Continue current asthma management with as-needed inhaler use and assess control at subsequent visits. - Follow low carbohydrate nutritional recommendations as part of the weight management strategy for obesity. Patient was informed and verbally consented to the use of an ambient scribe for clinic note documentation during this visit. I discussed with the patient the importance of regular monitoring of her thyroid function and lipid profile. The thyroid function test will be completed today, and we will contact her regarding any necessary adjustment to her levothyroxine dosage. We discussed the elevated cholesterol levels and the plan to repeat the test during her physical examination in December. Nutritional advice was provided, emphasizing a low carbohydrate diet to manage her weight and cholesterol levels. We reviewed her asthma management, noting no current exacerbations. The patient reported no depressive symptoms, and overall, we agreed on the continuation of her current medication regimen. We also reviewed the plan to perform necessary lab work both now and during her upcoming visit. Patient Instructions: - Complete thyroid function blood test today at our lab. - Maintain low carbohydrate diet to aid in weight and cholesterol management. - Use asthma rescue inhaler as needed; monitor any symptoms or changes. - Schedule and complete fasting cholesterol panel in December as discussed.
[2024-06-16 08:03] VITALS: BP 110/80; BMI 31.2
== END 2024-06-16 08:20 | disposition home or self-care (01) ==
PROVIDERS: PCP Internal Medicine; Visit Provider Internal Medicine
DX: E03.9 Hypothyroidism, unspecified (principal); E78.00 Pure hypercholesterolemia, unspecified; J45.40 Moderate persistent asthma, uncomplicated; E66.811 Obesity, class 1; Z68.31 Body mass index [BMI] 31.0-31.9, adult; Z23 Encounter for immunization